=== PATIENT | female | born 2000 | race Two or more races ===

== ENCOUNTER 2022-03-17 23:09 | Emergency (ER) | payer OTHER ==
[~2022-03-17] VITALS: Ht 160 cm; Wt 61.2 kg
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
[2022-03-17] MEDS ORDERED: ACTIVATED CHARCOAL 25 GM/120 ML TUBE ONE (23:23)
[2022-03-17] MEDS ORDERED: ONDANSETRON HCL/PF 4 MG/2 ML VIAL ONE (23:24)
[2022-03-17] MEDS ORDERED: ACTIVATED CHARCOAL 25 GM/120 ML TUBE PO ONE (23:30)
[2022-03-17] MEDS ORDERED: ONDANSETRON HCL/PF 4 MG/2 ML VIAL IV ONE (23:30)
--- NOTE | 2022-03-17 23:30 | NUR ---
RAC #20G S/L BLOOD COLLECTED AND SENT TO LAB
[2022-03-17 23:33] LABS: BASOPHILS # (AUTO) 0.1 K/uL (0.0-0.2); BASOPHILS % (AUTO) 0.8 % (0.0-2.0); EOSINOPHILS % (AUTO) 0.6 % (0.0-6.0); HEMATOCRIT 40 % (33-45); HEMOGLOBIN 13.6 g/dL (11.5-14.8); LYMPHOCYTES # (AUTO) 2.6 K/uL (0.8-4.8); LYMPHOCYTES % (AUTO) 37.7 % (20.0-44.0); MEAN CORPUSCULAR HGB CONC 34 g/dl (31.0-36.0); MEAN CORPUSCULAR VOLUME 91 fL (82-100); MONOCYTES # (AUTO) 0.3 K/uL (0.1-1.30); MONOCYTES % (AUTO) 4.8 % (2.0-12.0); NEUTROPHILS # (AUTO) 3.9 K/uL (1.8-8.9); NEUTROPHILS % (AUTO) 56.1 % (43.0-81.0); PLATELET COUNT (AUTO) 241 K/uL (150-450); RED BLOOD CELL COUNT(AUTO) 4.39 MIL/uL (4.0-5.2); WHITE BLOOD COUNT (AUTO) 6.9 K/uL (4.3-11.0)
[2022-03-17 23:41] LABS: CARBON DIOXIDE 26 mmol/L (21-32); CHLORIDE 104 mmol/L (98-107); CREATININE 0.6 mg/dL (0.6-1.3); GLUCOSE 87 mg/dL (74-106); SODIUM SERUM 141 mmol/L (136-145); UREA NITROGEN, BLOOD 5 mg/dL (7-18)
--- NOTE | 2022-03-17 23:41 | NUR ---
COVID ANTIGEN SWAB COLLECTED AND SENT TO LAB
--- NOTE | 2022-03-17 23:41 | NUR ---
PT PASSED SWALLOW EVAL WITH NO CHOKING
[2022-03-17 23:46] LABS: ALANINE AMINOTRANSFERASE 22 U/L (12-78); ALBUMIN 4.4 g/dL (3.4-5.0); ALCOHOL, BLOOD 98 mg/dL (0-0); ALKALINE PHOSPHATASE 101 U/L (46-116); ASPARTATE AMINOTRANSFERASE 17 U/L (15-37); BILIRUBIN,DIRECT 0.2 mg/dL (0.0-0.2); BILIRUBIN,TOTAL 0.6 mg/dL (0.2-1.0); TOTAL PROTEIN, SERUM 7.9 g/dL (6.4-8.2)
--- NOTE | 2022-03-17 23:46 | NUR ---
CRITICAL LAB: K - 2.5; DR. MARK SANDY
[2022-03-17 23:50] LABS: ACETAMINOPHEN 0 ug/ml (10-30); POTASSIUM 2.5 mmol/L (3.5-5.1)
[2022-03-17] MEDS ORDERED: POTASSIUM CHLORIDE 20 MEQ POWDER PACKET ONE (23:50)
[2022-03-17] MEDS ORDERED: POTASSIUM CL. PREMIX PERIPHER. 50 ML ONE (23:52)
[2022-03-17] MEDS ORDERED: Magnesium 1GM/D5W 100ML PREMIX 100 ML IV ONE (23:52)
[2022-03-17] MEDS ORDERED: TDAP [DIPH/PERTUSSIS/TET] 0.5 ML VIAL IM ONE (23:58)
[2022-03-18] MEDS ORDERED: POTASSIUM CHLORIDE 20 MEQ POWDER PACKET PO ONE
[2022-03-18] MEDS ORDERED: Magnesium 1 GM/2 ML VIAL IV ONE
[2022-03-18] MEDS ORDERED: TDAP [DIPH/PERTUSSIS/TET] 0.5 ML VIAL IM ONE
[2022-03-18] MEDS ORDERED: POTASSIUM CL. PREMIX PERIPHER. 50 ML ONE (00:19)
[2022-03-18] MEDS: POTASSIUM CL. PREMIX PERIPHER. 50 ML IV SCH ×4 (00:31→04:00)
--- NOTE | 2022-03-18 01:02 | NUR ---
YARELIS, MOTHER [phone]
--- NOTE | 2022-03-18 01:28 | NUR ---
UPDATED YARELIS MOTHER [phone]
--- NOTE | 2022-03-18 01:49 | NUR ---
PT LESS LETHARGIC. ABLE TO ANSWER QUESTIONS APPROPRIATELY
[2022-03-18] MEDS ORDERED: POTASSIUM CL. PREMIX PERIPHER. 100 ML ONE (01:55)
[2022-03-18 02:06] LABS: BILIRUBIN,URINE NEGATIVE (NEGATIVE); COLOR,URINE YELLOW (YELLOW); LEUKOCYTE ESTERASE ,URINE NEGATIVE (NEGATIVE); NITRITE, URINE NEGATIVE (NEGATIVE); PROTEIN,URINE NEGATIVE (NEGATIVE); UGLUCOSE NEGATIVE (NEGATIVE); UROBILINOGEN,URINE 0.2 EU/dL (0.2)
--- NOTE | 2022-03-18 05:49 | NUR ---
PT IS AWAKE, ALERT AND ORIENTED. PT IS ASSISTED WITH PATIENT CARE. ASSISTED TO THE REST ROOM. AMBULATORY ON STEADY GAIT
--- NOTE | 2022-03-18 11:04 | NUR ---
DR CURRAN ON THE PHONE WITH SKIN CARVER.
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
--- NOTE | 2022-03-18 15:22 | NUR ---
[facility] WILL ACCEPT THE PT PER TITLE I MATH TUTOR. CALLING [facility] TO NOTIFY
--- NOTE | 2022-03-18 15:30 | NUR ---
CALLED [facility] FOR THE PT AND WAS NOTIFIED THAT THEY ARE NOT CONTRACTED WITH [facility]. FAXED OVER PT CLINICALS TO [phone] AWAITING A CALL BACK.
--- NOTE | 2022-03-18 15:36 | NUR ---
Per Zhane Patterson [facility] stated that [facility] cannot take pt. Diane will place pt. into a psychiatric hospital. Noted. SW notified [facility]
--- NOTE | 2022-03-18 15:48 | NUR ---
Юлия hood [facility] fax [phone].
--- NOTE | 2022-03-18 17:37 | NUR ---
[facility] NUMBER [phone]
--- NOTE | 2022-03-18 19:09 | NUR ---
[facility] AND WAS NOTIFIED TO DO A REPEAT EKG FOR THE PT AND SEND IT TO [phone]
--- NOTE | 2022-03-18 21:17 | NUR ---
SPOKE TO [facility] ) TO F/O ABOUT BED PLACEMENT. WAITING FOR NURSE SUPERVISIOR TO GIVE BED.
--- NOTE | 2022-03-18 23:18 | NUR ---
CALLED [facility] AND SPOKE TO KG. PER HER [facility] WILL HAVE TO REVIEW THE CASE FOR ABNORMAL EKG
--- NOTE | 2022-03-19 10:12 | NUR ---
ANEUDY called [facility] [phone] and they stated that [facility] is reviewing the clinicals. Per [facility] finder they requested new EKG last night and if it has not been done and esent that they recommend we do it as it may delay the acecptance. ANEUDY notified Leonardo in ED.
--- NOTE | 2022-03-19 10:28 | NUR ---
SPOKE WITH [facility] AND STATED THAT THEY WILL BE ACCEPTING THE PT AND WILL CALL BACK WITH INFORMATION REGARDING FALCITY AND TRANSPORTATION.
--- NOTE | 2022-03-19 12:59 | NUR ---
[facility] CALLED WITH ACCEPTANCE INFO GOING TO [facility] [address] JEONG NUMBER FOR REPORT [phone] ETA FOR TRANSPORT 1500
--- NOTE | 2022-03-19 13:08 | NUR ---
CALLED [facility] FOR REPORT, WAS TOLD TO CALL BACK IN 30 MINUTES.
--- NOTE | 2022-03-19 14:41 | NUR ---
REPORT GIVEN TO MARSHALL CHAWLA HIMA
[2022-03-19 16:12] VITALS: BP 122/81
--- NOTE | 2022-03-19 16:12 | NUR ---
TRANSPORTATION ARRIVED, REPORT GIVEN, PT TRANSPORTED TO [facility] IN STABLE CONDITION.
== END 2022-03-19 16:14 ==
LOC: ER 23:09
DX: T45.0X2A Poisoning by antiallergic and antiemetic drugs, intentional self-harm, initial encounter (principal); R00.0 Tachycardia, unspecified; R61 Generalized hyperhidrosis; Y92.009 Unspecified place in unspecified non-institutional (private) residence as the place of occurrence of the external cause; S51.812A Laceration without foreign body of left forearm, initial encounter; S51.811A Laceration without foreign body of right forearm, initial encounter; X78.9XXA Intentional self-harm by unspecified sharp object, initial encounter; Z91.51 Personal history of suicidal behavior; R41.82 Altered mental status, unspecified; Z20.822 Contact with and (suspected) exposure to COVID-19; R94.31 Abnormal electrocardiogram [ECG] [EKG]
CPT/HCPCS: 99285; 96375; 93005; 90715; 85025; 80048; 80076; 84703; 81003; 36415; 87426; 80143; 80320; 80307; 90471; 96365; 96366; 96368; J2405; J3480 ×3; J3475; C9803; G0480